=== PATIENT | female | born 1995 | race African-American/Black ===

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

== ENCOUNTER 2022-01-23 15:10 | Emergency (ER) | payer OTHER ==
[~2022-01-23] VITALS: Ht 157.5 cm; Wt 59.0 kg
[2022-01-23 15:18] VITALS: BP 114/68
== END 2022-01-23 18:15 | disposition left against medical advice (07) ==
LOC: ER 15:10
DX: Z53.21 Procedure and treatment not carried out due to patient leaving prior to being seen by health care provider (principal); F41.9 Anxiety disorder, unspecified; J45.909 Unspecified asthma, uncomplicated; Z86.14 Personal history of Methicillin resistant Staphylococcus aureus infection

== ENCOUNTER 2024-01-03 01:17 | Emergency (ER) | payer MEDICAID, OTHER ==
[~2024-01-03] VITALS: Ht 157.5 cm; Wt 69.0 kg
[2024-01-03 01:26] VITALS: BP 142/84; PULSE 81; TEMP 98.1; O2SAT 100
[2024-01-03] MEDS ORDERED: IBUP-2029 MT (01:32)
[2024-01-03] MEDS ORDERED: AMOX-494 MT (01:32)
[2024-01-03] MEDS: IBUPROFEN 600MG TABLET PO ONE (01:35)
[2024-01-03 01:53] VITALS: RESP 16
== END 2024-01-03 01:54 | disposition home or self-care (01) ==
LOC: ER 01:24
DX: K04.7 Periapical abscess without sinus (principal); R63.30 Feeding difficulties, unspecified; J45.909 Unspecified asthma, uncomplicated; Z87.01 Personal history of pneumonia (recurrent)
CPT/HCPCS: 99283